=== PATIENT | male | born 1935 | race Caucasian/White ===

== ENCOUNTER 2024-03-09 10:30 | Emergency (ER) | payer MEDICARE, SELFPAY ==
[2024-03-09 10:40] VITALS: BP 152/64
--- NOTE | 2024-03-09 10:49 | ED.SKININJ ---
HPI-Injury
General
Chief Complaint: Skin Problem
Source: patient and spouse
Exam Limitations: none
Time Seen by Provider: 03/09/24 10:48
Nursing documentation reviewed up to this point in time: agreed with
History of Present Illness-Injury
Initial Injury comments:
89-year-old male with history of HTN, HLD, CO, BPH, CABG presents with wound, swelling, redness LLE. He wears shorts all year long and frequently bumps his legs. Has numerous small scabbed old wounds over both lower legs.
About a month ago hit medial left upper ankle and this sore has not healed, it keeps weeping clear fluid and now lower leg has burning pain, swelling and redness.
Denies fever/chills. Feels well otherwise.
Past History
Past History
ED Past Medical History: HTN, Hypercholesterolemia, CO and Other (BPH)
ED Past Surgical History: Cardiac (CABG)
Review of Systems
Review of Systems
Allergies reviewed?: Yes
All Other Systems: ROS reviewed and negative except as documented in HPI and ROS
Constitutional: Denies fever or chills
Respiratory: Denies trouble breathing
Cardiac: Denies chest pain
ABD/GI: Denies abdominal pain, nausea or vomiting
Musculoskeletal: Reports other (swelling left calf and foot)
Skin: Reports other ( multiple small wounds mostly old, few newer both lower legs. redness, pain, swelling left lower leg)
Neurological: Reports no symptoms
Phy Exam
Physical Exam
Physical Exam:
GENERAL: No acute distress. A&Ox3.
CONSTITUTIONAL: Afebrile.
EYES: clear, conjunctivae normal
ENMT: moist mucus membranes
RESPIRATORY: Regular respirations, nonlabored, lungs clear.
CARDIOVASCULAR: Regular rate and rhythm, no murmurs, no rubs.
GI: Soft, nontender
MUSCULOSKELETAL: Moves with ease. Well perfused.
SKIN: Warm, dry, pink. Both lower legs with multiple small scabbed over wounds. One punctate <5mm wound medial upper left ankle oozing clear fluid. Two small slits in skin of mid posterior left calf oozing clear liquid. The lower leg and foot are
reddened, +1 swollen compared to Right. Foot warm, normal pulses, brisk capillary refill.
PSYCH: Normal mood and affect. Well kept, interactive and appropriate
NEUROLOGIC: Awake, alert and oriented. No focal neurological deficits
Course
Orders/Labs/Results
Orders:
Orders
03/09/24 11:01
US Periph Venous LOWER Ext LT Urgent
Comment:
Reason For Exam: wound, redness, swelling
03/09/24 11:08
Complete Blood Count/With Diff Urgent
03/09/24 12:00
Acetaminophen [Tylenol] 1,000 mg PO NOW STA
Doxycycline [Vibramycin] 100 mg PO NOW STA
03/09/24 12:31
Add On- LAB Urgent
Tests Added?: CMP
03/09/24 12:38
Comprehensive Metabolic Panel Urgent
03/09/24 12:56
Hydrocodone 5/APAP 325 [[place] 5/325] 1 tablet PO NOW STA
Abnormal Lab Results
03/09/24 03/09/24
11:08 12:38
RBC 3.30 L 10^6/uL
(4.70-6.10)
Hgb 10.3 L g/dL
(13.0-18.0)
Hct 30.8 L %
(39.0-52.0)
MCH 31.2 H pg
(27.0-31.0)
RDW 14.7 H %
(11.5-14.5)
Abs Immat Gran (auto) 0.1 H 10^3/uL
(0-0.05)
Absolute Monos (auto) 0.8 H 10^3/uL
(0.1-0.6)
Immature Gran % 0.8 H %
(0-0.5)
Lymphocytes % 14.9 L %
(20.5-51.1)
Monocytes % 9.7 H %
(1.7-9.3)
Potassium 5.2 H mmol/L
(3.5-5.1)
BUN 39 H mg/dl
(9-20)
Creatinine 1.4 H mg/dL
(0.7-1.3)
Glucose 103 H mg/dl
(70-99)
Total Protein 6.0 L g/dl
(6.3-8.2)
03/09/24 11:08
03/09/24 12:38
Vital Signs
Initial and Last Documented VS:
Initial Vital Signs
Temp Pulse Resp BP Pulse Ox
98.0 F 50 18 152/64 96
03/09/24 10:40 03/09/24 10:40 03/09/24 10:40 03/09/24 10:40 03/09/24 10:40
Last Documented Vital Signs
Temp Pulse Resp BP Pulse Ox
98.0 F 62 18 153/49 98
03/09/24 10:40 03/09/24 13:21 03/09/24 10:40 03/09/24 13:21 03/09/24 13:21
MDM/Problems Addressed
Differential Diagnosis Includes:
cellulitis, DVT
MDM/Problems Addressed:
89-year-old male with history of HTN, HLD, CO, BPH, CABG presents with wound, swelling, redness LLE. He wears shorts all year long and frequently bumps his legs. Has numerous small scabbed old wounds over both lower legs.
About a month ago hit medial left upper ankle and this sore has not healed, it keeps weeping clear fluid and now lower leg has burning pain, swelling and redness.
Denies fever/chills. Feels well otherwise.
Medications:
Tamsulosin hydrochloride 0.4 mg daily
Amlodipine 5 mg daily
Gabapentin 300 mg 3 tablets daily
Atorvastatin 40 mg daily
Trazodone 50 mg at bedtime
Allopurinol 300 mg daily
Baby aspirin daily Centrum, biotin, B12, iron, D3, co-Q10, omega-3, nerve shield
Few small open wounds cleansed w NSS, nonstick and gauze dressing applied.
Rx for Doxycycline sent to his pharmacy
CBC with no clinically significant abnormality
CMP BUN/Creat mildly elevated otherwise unremarkable.
US: No DVT
12:50 p.m.
Pt c/o pain unrelieved with Tylenol, can't walk due to pain. Vicodin ordered but he refused and got up and ambulated well to BR.
Wants to go home.
Given copies of lab work, instructed to f/u with his doctor in 2-3 days for wound checks and discuss kidney functions. Instructed to increase fluid/water intake to 6 glasses daily as he may be dehydrated.
*Critical Care Note
Total Time (30-74mins, 75-104mins- exclusive of procedures): Not Applicable
ED Attending Note
-
Portions of this chart may have been created with voice recognition software.� Occasional wrong word or��sound alike� substitutions may have occurred due to the inherent limitations of voice recognition software.
Discharge Plan
Departure
Patient Disposition: Home (Routine Discharge)
Date of Disposition: 03/09/24
Time of Disposition: 13:16
Patient with high blood pressure during this ER visit?: No
Condition: Good
Discharge Problem:
Cellulitis of left lower extremity, Open wound of left lower extremity
Instructions: Wound Care (DC), Cellulitis (Skin Infection), Adult (DC)
Prescriptions:
New
doxycycline hyclate 100 mg tablet
100 mg PO BID Qty: 19 0RF
Referrals:
Cimorelli,Troy C. Jr., DO [Active] - Follow up in 2-3 days
UNKNOWN - PT DOES,NOT KNOW [Family Provider] -
Activity Restrictions/Additional Instructions:
As we discussed, I sent a prescription to your pharmacy for doxycycline antibiotic start it tonight as you were given a dose here today.
REST with the foot elevated to the level of your heart as much as possible in the next 2 days to minimize swelling and pain.
WEAR LONG PANTS to protect your legs.
Return here immediately for fever, chills, worse pain, swelling, redness, pus drainage or feeling sicker in any way.
See your doctor in 2-3 days for recheck.
Interventions
Interventions:
*Risk Screen - Suicide Last Done: 03/09/24 11:21
*General Assessment Last Done: 03/09/24 11:21
*Neglect/Abuse Screening Last Done: 03/09/24 11:21
*ED COVID-19 Vaccine History Last Done: 03/09/24 11:21
*Nursing Disposition Last Done: 03/09/24 13:29
Discharge Date and Time
Discharge Date/Time: 03/09/24 13:30
Print Language: TELUGU
[2024-03-09 11:13] LABS: % Basophils 0.3 % (0-2); % Eosinophils 0.5 % (0-6); % Immature Granulocytes 0.8 % (0-0.5); % Lymphocytes 14.9 % (20.5-51.1); % Monocytes 9.7 % (1.7-9.3); % Neutrophils 73.8 % (42.2-75.2); Absolute Immature Granulocytes 0.1 10^3/uL (0-0.05); Absolute Lymphocytes 1.2 10^3/uL (1.2-3.4); Absolute Monocytes 0.8 10^3/uL (0.1-0.6); Absolute Neutrophils 5.7 10^3/uL (1.4-6.5); Hematocrit 30.8 % (39.0-52.0); Hemoglobin 10.3 g/dL (13.0-18.0); Mean Corp Hgb Conc. 33.4 g/dL (33.0-37.0); Mean Corpuscular Hgb 31.2 pg (27.0-31.0); Mean Corpuscular Volume 93.3 fL (80.0-94.0); Mean Platelet Volume 10.4 fL (7.4-10.4); Nucleated Red Blood Cells % 0 % (-); Platelet Count 176 10^3/uL (130-400); Red Cell Dist. Width 14.7 % (11.5-14.5); White Blood Cell Count 7.7 10^3/uL (4.8-10.8)
[2024-03-09] MEDS: TYLENOL 1000 MG PO (12:03)
[2024-03-09] MEDS: VIBRAMYCIN 100 MG PO (12:03)
[2024-03-09 13:20] LABS: ALT (SGPT) 23 U/L (0-50); AST (SGOT) 37 U/L (17-59); Albumin 3.6 g/dl (3.5-5.0); Alkaline Phosphatase 46 U/L (38-126); Blood Urea Nitrogen 39 mg/dl (9-20); Calcium 9.1 mg/dl (8.4-10.2); Carbon Dioxide 26 mmol/L (22-30); Chloride 106 mmol/L (98-107); Glucose 103 mg/dl (70-99); Potassium 5.2 mmol/L (3.5-5.1); Sodium 140 mmol/L (135-145); Total Bilirubin 0.7 mg/dl (0.2-1.3); eGFR 48.04
[2024-03-09 13:21] VITALS: BP 153/49
== END 2024-03-09 13:30 | disposition home or self-care (01) ==
LOC: EMR 10:30
PROVIDERS: Registered Nurse; EMERGENCY PHYSICIAN Student in an Organized Health Care Education/Training Program
DX: L03.116 Cellulitis of left lower limb (principal); S81.802A Unspecified open wound, left lower leg, initial encounter; R22.42 Localized swelling, mass and lump, left lower limb; X58.XXXA Exposure to other specified factors, initial encounter; I10 Essential (primary) hypertension; E78.00 Pure hypercholesterolemia, unspecified; I25.2 Old myocardial infarction; N40.0 Benign prostatic hyperplasia without lower urinary tract symptoms; Z95.1 Presence of aortocoronary bypass graft
CPT/HCPCS: 99284; 80053; 85025; 93971

== ENCOUNTER → 2024-03-15 12:22 | Outpatient (REF) | payer MEDICARE, SELFPAY | LOC: WOUND 12:22 | PROVIDERS: ATTENDING PHYSICIAN Surgery | DX: I87.312 Chronic venous hypertension (idiopathic) with ulcer of left lower extremity (principal); L97.222 Non-pressure chronic ulcer of left calf with fat layer exposed; I73.9 Peripheral vascular disease, unspecified; I87.2 Venous insufficiency (chronic) (peripheral) | CPT/HCPCS: 11042; 99204 ==

== ENCOUNTER → 2024-03-22 08:25 | Outpatient (REF) | payer MEDICARE, SELFPAY | LOC: WOUND 08:25 | PROVIDERS: ATTENDING PHYSICIAN Surgery | DX: I87.312 Chronic venous hypertension (idiopathic) with ulcer of left lower extremity (principal); L97.222 Non-pressure chronic ulcer of left calf with fat layer exposed; I73.9 Peripheral vascular disease, unspecified; I87.2 Venous insufficiency (chronic) (peripheral) | CPT/HCPCS: 11042 ==

== ENCOUNTER → 2024-03-29 10:07 | Outpatient (REF) | payer MEDICARE, SELFPAY | LOC: WOUND 10:07 | PROVIDERS: ATTENDING PHYSICIAN Surgery | DX: I87.312 Chronic venous hypertension (idiopathic) with ulcer of left lower extremity (principal); L97.222 Non-pressure chronic ulcer of left calf with fat layer exposed; I73.9 Peripheral vascular disease, unspecified; I87.2 Venous insufficiency (chronic) (peripheral) | CPT/HCPCS: 11042; 93922; 93925; 93971 ==

== ENCOUNTER → 2024-04-05 08:59 | Outpatient (REF) | payer MEDICARE, SELFPAY | LOC: WOUND 08:59 | PROVIDERS: ATTENDING PHYSICIAN Surgery | DX: I87.312 Chronic venous hypertension (idiopathic) with ulcer of left lower extremity (principal); L97.222 Non-pressure chronic ulcer of left calf with fat layer exposed; I87.2 Venous insufficiency (chronic) (peripheral) | CPT/HCPCS: 11042; 11045 ==

== ENCOUNTER → 2024-04-12 08:48 | Outpatient (REF) | payer MEDICARE, SELFPAY | LOC: WOUND 08:48 | PROVIDERS: ATTENDING PHYSICIAN Surgery | DX: I87.312 Chronic venous hypertension (idiopathic) with ulcer of left lower extremity (principal); L97.222 Non-pressure chronic ulcer of left calf with fat layer exposed; I87.2 Venous insufficiency (chronic) (peripheral) | CPT/HCPCS: 11042; 11045 ==

== ENCOUNTER → 2024-04-19 12:55 | Outpatient (REF) | payer MEDICARE, SELFPAY | LOC: WOUND 12:55 | PROVIDERS: ATTENDING PHYSICIAN Surgery | DX: I87.312 Chronic venous hypertension (idiopathic) with ulcer of left lower extremity (principal); L97.222 Non-pressure chronic ulcer of left calf with fat layer exposed; I87.2 Venous insufficiency (chronic) (peripheral) | CPT/HCPCS: 11042; 11045 ==